=== PATIENT | male | born 1980 | race Caucasian/White ===

== ENCOUNTER 2022-09-25 08:56 | Outpatient (CLI) | payer BC, SELFPAY ==
--- NOTE | 2022-09-25 09:00 | CRLHL7_ITS ---
For Patients: As a result of the Century Cures Act, medical imaging exams and procedure reports are released immediately into your electronic medical record. You may view this report before your referring provider. If you have questions, please contact your health care provider. INDICATION: Left tonsillar pain. COMPARISON: None. TECHNIQUE: CT soft tissue neck with IV contrast. ICD 370, 98 cc). FINDINGS: Normal bilateral parotid and submandibular glands. Normal thyroid gland. Scattered small normal-sized cervical lymph nodes bilaterally. No supraclavicular superior mediastinal adenopathy. Nasopharynx and oropharynx are clear. No inflammation within the parapharyngeal fat pads or retropharyngeal space. There is relative symmetric enlargement of the bilateral tonsillar pillars. However, there is no abnormal enhancement or inflammatory change. No mass or asymmetry at the base of tongue. Normal thickness of the epiglottis. There is the elongation of the superior thyroid cornu bilaterally. Notable inward hooked morphology of the left thyroid cornu (best appreciated on series 6 image [id number]). Findings nonspecific but can be seen with superior thyroid cornu syndrome and present with dysphagia or odynophagia. Normal glottis with symmetric vocal cords. Lung apices are clear. Normal alignment of the cervical spine. No prevertebral soft tissue swelling. Visualized paranasal sinuses and mastoid air cells are clear. IMPRESSION: 1. No adenopathy. 2. No inflammation within the parapharyngeal fat pads or vertebral space. Relative symmetric mild enlargement of the bilateral tonsillar pillars but without evidence of enhancement or inflammation. 3. Elongation of the superior thyroid cornu bilaterally with inward hooked morphology of the left thyroid cornu. Findings nonspecific but can be seen with superior thyroid cornu syndrome and presents with dysphagia or odynophagia. 4. Normal glottis with symmetric vocal cords. 5. No prevertebral soft tissue swelling Please note that all CT scans at this facility use dose modulation, iterative reconstruction, and/or weight-based dosing when appropriate to reduce radiation dose to as low as reasonably achievable. Dictated by Reno Reich MD @ 09/25/2022 11:38:07 AM (Electronically Signed)
== END 2022-09-25 08:57 | disposition home or self-care (01) ==
LOC: CT 08:58
PROVIDERS: Visit Provider Otolaryngology
DX: R07.0 Pain in throat (principal)
CPT/HCPCS: 70491; Q9967